=== PATIENT | male | born 1970 | race Caucasian/White ===

== ENCOUNTER 2018-08-10 07:00 | Emergency (ER) | payer BC, OTHER ==
[~2018-08-10] VITALS: Ht 182.9 cm; Wt 97.5 kg
[2018-08-10] MEDS ORDERED: MOBIC15 MG PO (07:33)
[2018-08-10 07:47] VITALS: BP 128/42
== END 2018-08-10 07:47 | disposition home or self-care (01) ==
LOC: ER 07:00
DX: M70.71 Other bursitis of hip, right hip (principal); F17.210 Nicotine dependence, cigarettes, uncomplicated; Z88.2 Allergy status to sulfonamides; Y93.89 Activity, other specified

== ENCOUNTER 2018-08-12 05:37 | Emergency (ER) | payer BC, OTHER ==
[~2018-08-12] VITALS: Ht 182.9 cm; Wt 97.5 kg
[~2018-08-12 05:37] MED LIST: MOBIC15 MG PO
[2018-08-12] MEDS ORDERED: NORCO 5-325 TA1 EACH PO (06:16)
[2018-08-12 06:45] VITALS: BP 147/66
== END 2018-08-12 06:48 | disposition home or self-care (01) ==
LOC: ER 05:37
DX: M70.61 Trochanteric bursitis, right hip (principal); F17.210 Nicotine dependence, cigarettes, uncomplicated; Z88.2 Allergy status to sulfonamides; Y93.89 Activity, other specified